=== PATIENT | female | born 1985 | race African-American/Black ===

== ENCOUNTER 2020-08-18 23:05 | Inpatient (IN) | payer OTHER, SELFPAY ==
[2020-08-18] MEDS: Lactated Ringer's 1,000 ML IV SCH (23:45)
[2020-08-18] MEDS ORDERED: Acetaminophen 500 MG TAB PO PRN (23:45)
[2020-08-18] MEDS ORDERED: Ondansetron PF 4 MG/2 ML Vial IVP PRN (23:45)
[2020-08-18] MEDS ORDERED: hydrALAZINE 20 MG/ML VIAL SLOW IVP PRN ×2 (23:45→23:48)
[2020-08-19] MEDS: Lactated Ringer's 1,000 ML IV SCH (01:36)
[2020-08-19] MEDS ORDERED: Butorphanol Tartrate 1 MG/ML VIAL SLOW IVP PRN (02:01)
[2020-08-19 08:18] VITALS: BMI 27.4
[2020-08-19] MEDS: Betamet Acet/Betamet Na Ph 30 MG/5 ML VIAL IM SCH (09:10)
[2020-08-19] MEDS: metroNIDAZOLE 500 MG TAB PO SCH ×2 (10:09→20:58)
[2020-08-19 10:39] LABS: Hemoglobin 11.2 g/dL (12.0-15.5); Mean Corpuscular HGB CONC 31.6 g/dL (32.0-36.0); Mean Corpuscular Hemoglobin 27.9 pg (27.0-33.0); Mean Corpuscular Volume 88.3 fl (81.6-98.3); Platelet Count 207 10x3/uL (150-450); RBC Distribution Width 15.7 % (11.5-14.5); Red Blood Cell (RBC) Count 4.01 10x6/uL (3.90-5.03)
[2020-08-19 20:11] LABS: SARS-CoV-2 PCR by NAA Not Detected (NotDetected)
[2020-08-20] MEDS: metroNIDAZOLE 500 MG TAB PO SCH ×2 (09:01→21:08)
[2020-08-20] MEDS: Betamet Acet/Betamet Na Ph 30 MG/5 ML VIAL IM SCH (09:01)
[2020-08-21] MEDS: metroNIDAZOLE 500 MG TAB PO SCH ×3 (08:48→22:31)
[2020-08-21] MEDS ORDERED: Calcium Carbonate 500 MG ChewTAB PO PRN (22:08)
[2020-08-22] MEDS ORDERED: Misoprostol 200 MCG TAB PR PRN (07:58)
[2020-08-22] MEDS ORDERED: Diphenoxylate HCl/Atropine Tablet PO PRN ×2 (07:58)
[2020-08-22] MEDS ORDERED: Methylergonovine 0.2 MG/ML VIAL IM PRN (07:58)
[2020-08-22] MEDS ORDERED: HYDROcodone/Acetaminophen 5/325 mg Tablet PO PRN ×3 (07:58→20:57)
[2020-08-22] MEDS ORDERED: Lidocaine 1% (PF) 30 ML VIAL SC PRN (07:58)
[2020-08-22] MEDS ORDERED: Ibuprofen 800 MG TAB PO PRN (07:58)
[2020-08-22] MEDS ORDERED: Carboprost 250 MCG/ML AMP IM PRN (07:58)
[2020-08-22] MEDS ORDERED: NS w/ Oxytocin 30 units 500 ML IVPB PRN (08:12)
[2020-08-22] MEDS ORDERED: NS w/ Oxytocin 30 units 500 ML IVPB SCH ×2 (08:45→09:15)
[2020-08-22] MEDS: metroNIDAZOLE 500 MG TAB PO SCH (09:44)
[2020-08-22] MEDS ORDERED: Fentanyl 4 mcg/Bup 0.1% Cadd 100 ML ONE (11:27)
[2020-08-22] MEDS ORDERED: Acetaminophen 325 MG TAB PO PRN ×2 (12:16→18:49)
[2020-08-22] MEDS ORDERED: Promethazine HCl 25 MG/ML VIAL IM PRN ×3 (12:16→20:57)
[2020-08-22] MEDS ORDERED: Ondansetron PF 4 MG/2 ML Vial IVP PRN ×3 (12:16→20:57)
[2020-08-22] MEDS ORDERED: diphenhydrAMINE 50 MG/ML VIAL IVP PRN ×2 (12:16→18:49)
[2020-08-22] MEDS ORDERED: Lactated Ringer's 500 ML IV PRN ×2 (12:16→18:49)
[2020-08-22] MEDS ORDERED: Naloxone HCl 0.4 mg/ml Vial IVP PRN ×4 (12:16→18:49)
[2020-08-22] MEDS ORDERED: Communication Order-Pharmacy FS SCH ×2 (12:30→19:00)
[2020-08-22] MEDS ORDERED: Fentanyl 4 mcg/Bupivacaine 0.1% Cassette 100 ML EPIDURAL SCH ×2 (12:30→19:00)
[2020-08-22] MEDS ORDERED: ePHEDrine Sulfate 50 MG/10 ML VIAL SLOW IVP PRN ×2 (13:18→20:00)
[2020-08-22] MEDS ORDERED: Hydrocerin (Eucerin) Cream 120 gm Jar TOP PRN ×2 (13:18→19:57)
[2020-08-22] MEDS ORDERED: Lidocaine 1% (PF) 30 ML VIAL ONE (16:12)
[2020-08-22] MEDS ORDERED: NS w/ Oxytocin 30 units 500 ML ONE (16:12)
[2020-08-22] MEDS ORDERED: Benzocaine-Menthol 82.5 ML CAN TOP PRN (20:57)
[2020-08-22] MEDS ORDERED: Milk Of Magnesia 30 ML UDCUP PO PRN (20:57)
[2020-08-22] MEDS ORDERED: NS / Oxytocin 40 units/1000ml 1,000 ML IV SCH (20:57)
[2020-08-22] MEDS ORDERED: Zolpidem Tartrate 5 MG TAB PO PRN (20:57)
[2020-08-22] MEDS ORDERED: diphenhydrAMINE 25 MG CAP PO PRN (20:57)
[2020-08-22] MEDS ORDERED: Preparation H Ointment 28 GM TUBE PR PRN (20:57)
[2020-08-22] MEDS ORDERED: Misoprostol 200 MCG TAB VAG PRN (20:57)
[2020-08-22] MEDS ORDERED: Lanolin Ointment 7 GM TUBE TOP PRN (20:57)
[2020-08-22] MEDS ORDERED: Bisacodyl 10 MG SUPP PR PRN (20:57)
[2020-08-22] MEDS ORDERED: hydrALAZINE 20 MG/ML VIAL SLOW IVP PRN (20:57)
[2020-08-22] MEDS: Ibuprofen 800 MG TAB PO SCH (22:04)
[2020-08-22] MEDS: Docusate Calcium (SURFAK) 240 MG CAP PO SCH (22:04)
[2020-08-23] MEDS: HYDROcodone/Acetaminophen 5/325 mg Tablet PO PRN ×2 (03:15→11:33)
[2020-08-23 06:01] LABS: Hemoglobin 10.7 g/dL (12.0-15.5); Mean Corpuscular HGB CONC 32.3 g/dL (32.0-36.0); Mean Corpuscular Hemoglobin 27.9 pg (27.0-33.0); Mean Corpuscular Volume 86.2 fl (81.6-98.3); RBC Distribution Width 15.4 % (11.5-14.5); Red Blood Cell (RBC) Count 3.84 10x6/uL (3.90-5.03)
[2020-08-23 06:02] LABS: Platelet Count 200 10x3/uL (150-450)
[2020-08-23] MEDS: Ibuprofen 800 MG TAB PO SCH ×3 (06:15→21:55)
[2020-08-23] MEDS: Ferrous Sulfate 325 MG TAB PO SCH ×2 (08:30→17:41)
[2020-08-23] MEDS ORDERED: Measles/Mumps/Rubella 10 MCG/0.5 ML VIAL SC ONE (09:00)
[2020-08-23] MEDS ORDERED: Varicella virus, LIVE 0.5 ML VIAL SC ONE (09:00)
[2020-08-23] MEDS ORDERED: Adacel (T-DAP) 0.5 ML SYRINGE IM ONE (09:00)
[2020-08-23] MEDS: Prenatal Vitamin 1 TAB PO SCH (09:05)
[2020-08-23] MEDS: Docusate Calcium (SURFAK) 240 MG CAP PO SCH ×2 (09:05→21:55)
[2020-08-24] MEDS: Ibuprofen 800 MG TAB PO SCH (05:37)
[2020-08-24 08:23] VITALS: BP 122/73; TEMP 98.5
[2020-08-24] MEDS: Prenatal Vitamin 1 TAB PO SCH (09:03)
[2020-08-24] MEDS: Ferrous Sulfate 325 MG TAB PO SCH (09:03)
[2020-08-24] MEDS: Docusate Calcium (SURFAK) 240 MG CAP PO SCH (09:03)
[2020-08-24 21:44] LABS: Chlamydia by PCR Inconclusive (NotDetected); GC by PCR Inconclusive (NotDetected)
== END 2020-08-24 14:10 | disposition home or self-care (01) | DRG 806 ==
LOC: CSHLD/OP 23:05 → CSHLD 08-19 09:00 → CSHPP 08-22 20:20
PROVIDERS: ADMIT Obstetrics & Gynecology; ATTEND Obstetrics & Gynecology
PROC: 10E0XZZ Delivery of Products of Conception, External Approach (ICD-10-PCS; principal; 2020-08-22)
DX: O76 Abnormality in fetal heart rate and rhythm complicating labor and delivery (principal); O98.52 Other viral diseases complicating childbirth; Z37.0 Single live birth; Z3A.36 36 weeks gestation of pregnancy; Z20.822 Contact with and (suspected) exposure to COVID-19; Z91.040 Latex allergy status; B00.1 Herpesviral vesicular dermatitis
CPT/HCPCS: 51702; 76815; 76819; 85027; 86850; 86900; 86901; 87480; 87491; 87510; 87591; 87635; 87660; 99285; J0595; J0702; J1200; U0003; U0005

== ENCOUNTER 2022-02-20 09:39 | Emergency (ER) | payer OTHER ==
[2022-02-20 10:30] LABS: #Eosinphils 0.1 10x3/uL (0.0-0.5); #Monocytes 0.8 10x3/uL (0.0-1.1); #Neutrophils 4.1 10x3/uL (1.5-8.4); %Basophils 0.5 % (0.0-2.0); %Eosinophils 0.7 % (0.0-6.0); %Lymphocytes 34.5 % (18.0-47.0); %Monocytes 10.2 % (0.0-10.0); %Neutrophils 53.8 % (40.0-75.0); Hemoglobin 14.9 g/dL (12.0-15.5); Mean Corpuscular HGB CONC 34.5 g/dL (32.0-36.0); Mean Corpuscular Hemoglobin 27.6 pg (27.0-33.0); Mean Corpuscular Volume 80.1 fl (81.6-98.3); Platelet Count 350 10x3/uL (150-450); RBC Distribution Width 13.6 % (11.5-14.5); Red Blood Cell (RBC) Count 5.39 10x6/uL (3.90-5.03); White Blood Cell (WBC) Count 7.7 10x3/uL (3.5-10.5)
[2022-02-20 10:45] LABS: ALT (SGPT) 11 U/L (8-55); AST (SGOT) 16 U/L (5-34); Albumin 4.8 g/dL (3.5-5.0); Alkaline Phosphatase 93 U/L (40-110); Anion Gap 17 mmol/L (10-20); BUN (Urea Nitrogen) 19 mg/dL (7.0-18.7); Bilirubin, Total 0.8 mg/dL (0.2-1.2); Calc. Creatinine Clearance 0 mL/min (70-130); Carbon Dioxide 22 mmol/L (22-29); Chloride 99 mmol/L (98-107); Estimated GFR 96; Globulin 3.6 g/dL (2.4-3.5); Glucose 108 mg/dL (70-105); Potassium 3.2 mmol/L (3.5-5.1); Protein, Total 8.4 g/dL (6.0-8.3); Sodium 135 mmol/L (136-145)
[2022-02-20] MEDS ORDERED: Ondansetron PF 4 MG/2 ML Vial ONE ×2 (10:46→10:47)
[2022-02-20] MEDS ORDERED: Potassium Chloride 20 MEQ TAB ONE (11:55)
== END 2022-02-20 12:37 | disposition home or self-care (01) ==
LOC: CSHERS 09:39
DX: O21.1 Hyperemesis gravidarum with metabolic disturbance (principal); O09.511 Supervision of elderly primigravida, first trimester; Z3A.01 Less than 8 weeks gestation of pregnancy
CPT/HCPCS: 76815; 80053; 84702; 85025; 86900; 86901; 96361; 96374; J2405

== ENCOUNTER 2022-08-24 00:09 | Day surgery (SDC) | payer OTHER ==
[2022-08-24 00:46] VITALS: BMI 29.2
[2022-08-24] MEDS ORDERED: hydrALAZINE 20 MG/ML VIAL SLOW IVP PRN (01:11)
[2022-08-24 01:55] LABS: Bilirubin Neg (Negative); Blood, Urine Negative (Negative); Clarity Clear (Clear); Glucose, Urine (Dipstick) 100 mg/dL (Negative); Ketone, Urine Negative (Negative); Leukocyte 25 (Negative); Nitrite Negative (Negative); Protein, Urine (Dipstick) Negative (Neg-Trace); Urobilinogen Normal mg/dL (Less than 2); pH, Urine 6.5 (5.0-9.0)
[2022-08-24] MEDS ORDERED: Lactated Ringer's 1,000 ML IV SCH (02:00)
[2022-08-24 02:02] LABS: Bacteria/HPF Rare-Few HPF (None Seen); CAUTI Indications for Culture Pregnancy; RBC/HPF 0-3 HPF (0-3); Squamous Epithelial 0-3 HPF (0-3); WBC/HPF 0-3 HPF (0-3)
[2022-08-24 02:03] LABS: Urine Culture Reflex Yes Yes
[2022-08-24 02:38] LABS: FFN Internal QC Analyzer PASS (PASS); FFN Internal QC Cassette PASS (PASS); Fetal Fibronectin Negative (Negative)
== END 2022-08-24 09:40 | disposition home or self-care (01) ==
LOC: CSHLD/OP 00:09
PROVIDERS: ATTEND Obstetrics & Gynecology
DX: O47.03 False labor before 37 completed weeks of gestation, third trimester (principal); Z79.899 Other long term (current) drug therapy; Z91.040 Latex allergy status; Z3A.33 33 weeks gestation of pregnancy
CPT/HCPCS: 51701; 76817; 76819; 81001; 82731; 87086; 87480; 87510; 87660; 96360; 96361; 99283

== ENCOUNTER 2022-10-02 01:16 | Inpatient (IN) | payer OTHER ==
[2022-10-02] MEDS ORDERED: Ondansetron PF 4 MG/2 ML Vial IVP PRN ×4 (01:49→15:46)
[2022-10-02] MEDS ORDERED: Promethazine HCl 25 MG/ML VIAL IM PRN ×4 (01:49→15:46)
[2022-10-02] MEDS ORDERED: hydrALAZINE 20 MG/ML VIAL SLOW IVP PRN ×3 (01:49→15:46)
[2022-10-02] MEDS ORDERED: Lidocaine 1% (PF) 30 ML VIAL SC PRN ×2 (01:50→01:55)
[2022-10-02] MEDS ORDERED: HYDROcodone/Acetaminophen 5/325 mg Tablet PO PRN ×3 (01:50→01:55)
[2022-10-02] MEDS ORDERED: Ibuprofen 800 MG TAB PO PRN ×2 (01:50→01:55)
[2022-10-02] MEDS ORDERED: Acetaminophen/Codeine 30-300mg Tablet PO PRN (01:50)
[2022-10-02] MEDS ORDERED: Diphenoxylate HCl/Atropine Tablet PO PRN ×2 (01:55)
[2022-10-02] MEDS ORDERED: Acetaminophen 500 MG TAB PO PRN (01:55)
[2022-10-02] MEDS ORDERED: Butorphanol Tartrate 1 MG/ML VIAL SLOW IVP PRN (01:55)
[2022-10-02] MEDS ORDERED: Methylergonovine 0.2 MG/ML VIAL IM PRN ×2 (01:55→15:46)
[2022-10-02] MEDS ORDERED: Carboprost 250 MCG/ML AMP IM PRN (01:55)
[2022-10-02] MEDS ORDERED: fentaNYL 50 mcg/mL 1 mL Vial SLOW IVP PRN (01:55)
[2022-10-02] MEDS ORDERED: Tranexamic Acid 1,000 MG/10 ML VIAL IVP PRN (01:55)
[2022-10-02] MEDS ORDERED: Misoprostol 200 MCG TAB PR PRN (01:55)
[2022-10-02] MEDS ORDERED: NS w/ Oxytocin 30 units 500 ML IV SCH ×3 (02:00→15:46)
[2022-10-02 02:12] LABS: Hemoglobin 11.6 g/dL (12.0-15.5); Mean Corpuscular HGB CONC 32.6 g/dL (32.0-36.0); Mean Corpuscular Hemoglobin 27.2 pg (27.0-33.0); Mean Corpuscular Volume 83.4 fl (81.6-98.3); Mean Platelet Volume 14.2 fl (7.4-10.4); Platelet Count 191 10x3/uL (150-450); RBC Distribution Width 15.8 % (11.5-14.5); Red Blood Cell (RBC) Count 4.27 10x6/uL (3.90-5.03); White Blood Cell (WBC) Count 7.8 10x3/uL (3.5-10.5)
[2022-10-02] MEDS ORDERED: fentaNYL/Ropivacaine Epidural 100 ML ONE (02:15)
[2022-10-02] MEDS ORDERED: Moisturizing Cream (Eucerin) 113 GM JAR TOP PRN (02:56)
[2022-10-02] MEDS ORDERED: ePHEDrine Sulfate 50 MG/10 ML VIAL SLOW IVP PRN (02:56)
[2022-10-02] MEDS ORDERED: Naloxone HCl 0.4 mg/ml Vial IVP PRN ×2 (02:56)
[2022-10-02] MEDS ORDERED: diphenhydrAMINE 50 MG/ML VIAL IVP PRN (02:56)
[2022-10-02] MEDS ORDERED: Acetaminophen 325 MG TAB PO PRN (02:56)
[2022-10-02] MEDS ORDERED: Lactated Ringer's 500 ML IV PRN (02:56)
[2022-10-02] MEDS ORDERED: Communication Order-Pharmacy FS SCH (03:00)
[2022-10-02] MEDS ORDERED: fentaNYL 2 mcg/Ropivacaine 0.2% Epidural 100 ML CADD EPIDURAL SCH (03:00)
[2022-10-02 03:53] LABS: Syphilis Antibody Nonreactive (Nonreactive); Syphilis Antibody Index 0.04 S/CO (<1.00 Non-Reactive)
[2022-10-02 03:53] LABS: HBSAg Index 0.15 S/CO (0-0.99); Hep B Surf Ag - L&D Non-Reactive S/CO (NonReactive)
[2022-10-02] MEDS: Lactated Ringer's 1,000 ML IV SCH ×2 (04:33→13:30)
[2022-10-02] MEDS ORDERED: Bupivacaine 0.25% HCL 30 ML VIAL ONE (08:00)
[2022-10-02] MEDS ORDERED: Calcium Carbonate 500 MG ChewTAB PO SCH (08:00)
[2022-10-02] MEDS ORDERED: Misoprostol 200 MCG TAB VAG PRN (15:46)
[2022-10-02] MEDS ORDERED: Lanolin Ointment 7 GM TUBE TOP PRN (15:46)
[2022-10-02] MEDS ORDERED: Preparation H Ointment 28 GM TUBE PR PRN (15:46)
[2022-10-02] MEDS ORDERED: Milk Of Magnesia 30 ML UDCUP PO PRN (15:46)
[2022-10-02] MEDS ORDERED: Boostrix 0.5 ML (Tdap) VIAL (>/=7 yrs of age) IM ONE (15:46)
[2022-10-02] MEDS ORDERED: Measles/Mumps/Rubella 10 MCG/0.5 ML VIAL SC ONE (15:46)
[2022-10-02] MEDS ORDERED: diphenhydrAMINE 25 MG CAP PO PRN (15:46)
[2022-10-02] MEDS ORDERED: Zolpidem Tartrate 5 MG TAB PO PRN (15:46)
[2022-10-02] MEDS ORDERED: Bisacodyl 10 MG SUPP PR PRN (15:46)
[2022-10-02] MEDS ORDERED: Varicella virus, LIVE 0.5 ML VIAL SC ONE (15:46)
[2022-10-02] MEDS ORDERED: Benzocaine-Menthol 82.5 ML CAN TOP PRN (15:46)
[2022-10-02] MEDS: Ferrous Sulfate 325 MG TAB PO SCH (15:59)
[2022-10-02] MEDS: HYDROcodone/Acetaminophen 5/325 mg Tablet PO PRN ×2 (16:05→20:05)
[2022-10-02] MEDS: Docusate 100 MG CAP PO SCH (20:05)
[2022-10-02] MEDS: Ibuprofen 800 MG TAB PO SCH (20:06)
[2022-10-03] MEDS: HYDROcodone/Acetaminophen 5/325 mg Tablet PO PRN ×4 (01:02→13:53)
[2022-10-03 04:04] LABS: Hemoglobin 9.7 g/dL (12.0-15.5); Mean Corpuscular HGB CONC 32.6 g/dL (32.0-36.0); Mean Corpuscular Hemoglobin 27.3 pg (27.0-33.0); Mean Corpuscular Volume 83.9 fl (81.6-98.3); Platelet Count 172 10x3/uL (150-450); RBC Distribution Width 15.8 % (11.5-14.5); Red Blood Cell (RBC) Count 3.55 10x6/uL (3.90-5.03); White Blood Cell (WBC) Count 9.4 10x3/uL (3.5-10.5)
[2022-10-03] MEDS: Ibuprofen 800 MG TAB PO SCH ×3 (06:18→21:15)
[2022-10-03] MEDS: Ferrous Sulfate 325 MG TAB PO SCH ×3 (08:11→19:10)
[2022-10-03] MEDS: Prenatal Vitamin 1 TAB PO SCH (08:15)
[2022-10-03] MEDS: Docusate 100 MG CAP PO SCH ×2 (08:16→21:15)
[2022-10-04] MEDS: Ibuprofen 800 MG TAB PO SCH (05:52)
[2022-10-04 07:50] VITALS: BP 133/71; TEMP 98.1
[2022-10-04] MEDS: Ferrous Sulfate 325 MG TAB PO SCH (07:52)
[2022-10-04] MEDS: Prenatal Vitamin 1 TAB PO SCH (07:53)
[2022-10-04] MEDS: Docusate 100 MG CAP PO SCH (07:53)
[2022-10-04] MEDS: HYDROcodone/Acetaminophen 5/325 mg Tablet PO PRN (08:12)
== END 2022-10-04 13:30 | disposition home or self-care (01) | DRG 807 ==
LOC: CSHLD/OP 01:16 → CSHLD 02:03 → CSHPP 15:38
PROVIDERS: ADMIT Obstetrics & Gynecology; ATTEND Obstetrics & Gynecology
PROC: 10D07Z3 Extraction of Products of Conception, Low Forceps, Via Natural or Artificial Opening (ICD-10-PCS; principal; 2022-10-03)
DX: O32.8XX0 Maternal care for other malpresentation of fetus, not applicable or unspecified (principal); Z37.0 Single live birth; O70.0 First degree perineal laceration during delivery; Z3A.39 39 weeks gestation of pregnancy; Z91.040 Latex allergy status
CPT/HCPCS: 36415; 51702; 85027; 86780; 86850; 86900; 86901; 87340; 99285; J2590; J7120; S0020